=== PATIENT | male | born 1960 | race Caucasian/White ===

== ENCOUNTER 2017-09-04 13:34 | Outpatient (RCR) | payer OTHER | END 2017-09-05 | LOC: PT 13:34 | PROVIDERS: ATTEND Anesthesiology Pain Medicine | DX: M47.22 Other spondylosis with radiculopathy, cervical region (principal); M99.81 Other biomechanical lesions of cervical region; M79.1 Myalgia; M12.88 Other specific arthropathies, not elsewhere classified, other specified site ==

== ENCOUNTER 2017-10-03 13:56 | Outpatient (RCR) | payer OTHER | END 2017-10-06 | LOC: PT 13:56 | PROVIDERS: ATTEND Anesthesiology Pain Medicine | DX: M47.22 Other spondylosis with radiculopathy, cervical region (principal); M99.81 Other biomechanical lesions of cervical region; M12.88 Other specific arthropathies, not elsewhere classified, other specified site; M79.1 Myalgia ==